=== PATIENT | female | born 1980 ===

== ENCOUNTER 2017-08-25 07:12 | Emergency (ER) | payer MEDICAID ==
[2017-08-25 07:35] VITALS: BP 125/89; PULSE 68; RESP 19; TEMP 98.6; O2SAT 100
--- NOTE | 2017-08-25 08:34 | ED PDOC ---
HPI: Chest Pain Time Seen by Provider: 08/25/17 08:13 Chief Complaint (Nursing): Chest Pain Chief Complaint (Provider): chest pain History Per: Patient History/Exam Limitations: no limitations Onset/Duration Of Symptoms: Days (x2) Current Symptoms Are (Timing): Gone Now Quality: Sharp Additional Complaint(s): 37 year old female presents to the emergency department with a complaint of sharp, right-sided chest pain that occurred yesterday while bending over and had resolved spontaneously. Patient stated she also felt cold afterwards. She denied any shortness of breath, palpitation, radiation of pain or current chest pain. Patient reported history of a questionable murmur. PMD: Jennifer Mcfadden MD Past Medical History Reviewed: Historical Data, Nursing Documentation, Vital Signs Vital Signs: Last Vital Signs Temp 98.6 F 08/25/17 07:29 Pulse 68 08/25/17 07:29 Resp 19 08/25/17 07:29 BP 125/89 08/25/17 07:29 Pulse Ox 100 08/25/17 08:40 - Medical History PMH: No Chronic Diseases - Surgical History Surgical History: No Surg Hx - Family History Family History: States: Unknown Family Hx - Social History Current smoker - smoking cessation education provided: No Alcohol: None Drugs: Denies - Home Medications Home Medications: Ambulatory Orders Medication Instructions Recorded Non-Formulary 1 ea .ROUTE Q6 #1 ea 08/25/17 - Allergies Allergies/Adverse Reactions: Allergies Allergy/AdvReac Type Severity Reaction Status Date / Time No Known Allergies Allergy Verified 08/25/17 07:29 Review of Systems ROS Statement: Except As Marked, All Systems Reviewed And Found Negative Constitutional: Positive for: Chills (resolved) Cardiovascular: Positive for: Chest Pain (right sided-resolved). Negative for: Palpitations Respiratory: Negative for: Shortness of Breath Physical Exam - Reviewed Nursing Documentation Reviewed: Yes Vital Signs Reviewed: Yes - Physical Exam Appears: Positive for: Well, Non-toxic, No Acute Distress Cardiovascular/Chest: Positive for: Regular Rate, Rhythm, Chest Non Tender. Negative for: Murmur (on auscultation) Respiratory: Positive for: Normal Breath Sounds. Negative for: Decreased Breath Sounds, Wheezing, Respiratory Distress Gastrointestinal/Abdominal: Positive for: Normal Exam, Soft. Negative for: Tenderness Extremity: Positive for: Normal ROM (upper/lower). Negative for: Pedal Edema ( bilateral), Calf Tenderness (bilateral) Neurologic/Psych: Positive for: Alert (x3), air boatswain II-XII (intact), Oriented. Negative for: Motor/Sensory Deficits - Laboratory Results Result Diagrams: 08/25/17 08:50 08/25/17 08:50 - ECG O2 Sat by Pulse Oximetry: 100 (RA) Pulse Ox Interpretation: Normal Medical Decision Making Medical Decision Making: Initial Impression: Chest pain (resolved) Initial Plan: * CMP * Troponin I * CBC * CXR Scribe Attestation: Documented by Elzbieta Valverde, acting as a scribe for Chago Cárdenas MD. Provider Scribe Attestation: All medical record entries made by the Scribe were at my direction and personally dictated by me. I have reviewed the chart and agree that the record accurately reflects my personal performance of the history, physical exam, medical decision making, and the department course for this patient. I have also personally directed, reviewed, and agree with the discharge instructions and disposition. Disposition - Clinical Impression Clinical Impression: Chest pain - Disposition Referrals: Jennifer Mcfadden MD [Primary Care Provider] - Disposition: Routine/Home Disposition Time: 09:49 Condition: FAIR Prescriptions: Non-Formulary 1 ea .ROUTE Q6 #1 ea Instructions: Chest Pain Forms: [facility] (Chinese) Print Language: GERMAN
[2017-08-25 08:59] LABS: BASO % 0.4 % (0.0-2.0); EOS # 0.1 K/uL (0.0-0.7); EOS % 1.5 % (0.0-4.0); HEMOGLOBIN 13.2 g/dL (12.0-16.0); LYMPH # 1.6 K/uL (1.0-4.3); LYMPH % 22.9 % (20.0-40.0); MEAN CELL VOLUME 89.4 fl (81.0-99.0); MEAN CORPUSCULAR HEMOGLOBIN 29.9 pg (27.0-31.0); MEAN CORPUSCULAR HGB CONC 33.4 g/dL (33.0-37.0); MEAN PLATELET VOLUME 11.3 fl (7.2-11.7); MONO # 0.6 K/uL (0.0-0.8); MONO % 8.8 % (0.0-10.0); NEUT # 4.6 K/uL (1.8-7.0); NEUT % 66.4 % (50.0-75.0); NRBC % 0.2 % (0.0-0.0); RBC 4.4 Mil/uL (3.80-5.20); WHITE BLOOD COUNT 6.9 K/uL (4.8-10.8)
[2017-08-25 09:19] LABS: ALB/GLOB RATIO 1.1 (1.0-2.1); ALBUMIN 3.9 g/dL (3.5-5.0); ALT/SGPT 35 U/L (9-52); AST/SGOT 20 U/L (14-36); BLOOD UREA NITROGEN 13 mg/dl (7-17); CALCIUM 9.2 mg/dL (8.4-10.2); GFR AFRICAN-AMERICAN > 60; GFR NON-AFRICAN AMERICAN > 60
--- NOTE | 2017-08-25 11:30 | RAD ---
HISTORY: Chest pain COMPARISON: No prior. TECHNIQUE: Chest PA and lateral FINDINGS: LUNGS: No active pulmonary disease. PLEURA: No significant pleural effusion identified. No pneumothorax apparent. CARDIOVASCULAR: Normal. OSSEOUS STRUCTURES: No significant abnormalities. VISUALIZED UPPER ABDOMEN: Normal. OTHER FINDINGS: None. IMPRESSION: No active disease.
== END 2017-08-25 10:07 | disposition home or self-care (01) ==
LOC: SUPCPDRO 07:12 → H.ER 07:12
DX: R07.89 Other chest pain (principal)